=== PATIENT | female | born 1950 ===

== ENCOUNTER 2016-12-01 09:37 | Day surgery (SDC) | payer OTHER ==
[2016-12-01] MEDS ORDERED: Propofol 10 mg/ml Inj (20 ML) ONE ×3 (11:43→12:16)
[2016-12-01] MEDS ORDERED: Lactated Ringer's 1,000 ML IV ONE (12:26)
[2016-12-01 12:45] VITALS: O2SAT 100
[2016-12-01 12:47] VITALS: TEMP 96.9
[2016-12-01 13:36] VITALS: BP 122/68; PULSE 73; RESP 15
== END 2016-12-01 13:35 | disposition home or self-care (01) ==
LOC: C.ENDO 09:37
PROVIDERS: ATTEND Internal Medicine Gastroenterology
DX: K29.70 Gastritis, unspecified, without bleeding (principal); K74.60 Unspecified cirrhosis of liver; R13.10 Dysphagia, unspecified; K20.9 Esophagitis, unspecified; K64.8 Other hemorrhoids
CPT/HCPCS: 43239; 45378; 82948; 88305; 88312; 88313; 88342; J2704; J7120

== ENCOUNTER 2017-01-05 09:04 | Day surgery (SDC) | payer OTHER ==
[2017-01-05 09:51] VITALS: BMI 29.2
[2017-01-05] MEDS ORDERED: Propofol 10 mg/ml Inj (20 ML) ONE ×2 (13:09→13:16)
[2017-01-05] MEDS ORDERED: Lidocaine Hydrochloride 5 ML INJ ONE (13:09)
[2017-01-05 13:50] VITALS: TEMP 97.4; O2SAT 100
[2017-01-05 15:16] VITALS: BP 113/67; PULSE 65; RESP 159
== END 2017-01-05 14:30 | disposition home or self-care (01) ==
LOC: C.ENDO 09:04
PROVIDERS: ATTEND Internal Medicine Gastroenterology
DX: K22.10 Ulcer of esophagus without bleeding (principal); R13.10 Dysphagia, unspecified
CPT/HCPCS: 43239; 82948; 88305; 88312; 88342; J2704